=== PATIENT | male | born 1995 ===

== ENCOUNTER 2017-12-12 12:49 | Emergency (ER) | payer OTHER ==
[2017-12-12] MEDS ORDERED: Lidocaine 2% PF * 5 ML VIAL INJ ONE (13:20)
--- NOTE | 2017-12-12 14:06 | RAD ---
INDICATION: Right great toe laceration after traumatic injury TECHNIQUE: 3 views of the right great toe were obtained. FINDINGS: At the medial proximal corner of the right great toe distal phalanx there is a well-circumscribed bony focus that either represents a nondisplaced fracture or a bony ossicle. The remaining visualized bones are intact and appropriately aligned. IMPRESSION: Bony focus at the medial proximal corner of the right great toe distal phalanx more likely represents a benign bony ossicle but could represent a nondisplaced fracture in the correct clinical setting.
[2017-12-12] MEDS ORDERED: Cephalexin CAP* 500 MG PO ONE (14:34)
--- NOTE | 2017-12-12 14:49 | UC ---
Laceration HPI - HPI Summary HPI Summary: Patient states he was standing next to a skid steer bucket when his friend jumped down from the cabin and landed on the bucket, which smashed his right big foot. States he had tetanus vaccine a few years ago and he is not in need of one. NKDA, no PMH - History Of Current Complaint Chief Complaint: UCLaceration Stated Complaint: TOE LACERATION Time Seen by Provider: 12/12/17 12:59 Hx Obtained From: Patient Laceration Location: Toe Mechanism Of Injury: Blunt Trauma Onset/Duration: Sudden Onset, Lasting Hours Severity: Moderate Pain Intensity: 5 Aggravating Factors: Movement - Allergies/Home Medications Allergies/Adverse Reactions: Allergies Allergy/AdvReac Type Severity Reaction Status Date / Time No Known Allergies Allergy Verified 12/12/17 13:10 PMH/Surg Hx/FS Hx/Imm Hx Previously Healthy: Yes - Surgical History Surgical History: None - Social History Alcohol Use: Occasionally Substance Use Type: None Smoking Status (MU): Never Smoked Tobacco Type: Smokeless Tobacco Review of Systems Musculoskeletal: Arthralgia, Myalgia All Other Systems Reviewed And Are Negative: Yes Physical Exam Triage Information Reviewed: Yes Appearance: Well-Appearing, No Pain Distress, Well-Nourished Vital Signs: Initial Vital Signs Temp 99.0 F 12/12/17 13:05 Pulse 84 12/12/17 13:05 Resp 18 12/12/17 13:05 BP 138/93 12/12/17 13:05 Pulse Ox 100 12/12/17 13:05 Vital Signs Reviewed: Yes Eyes: Positive: Conjunctiva Clear Neck: Positive: Supple Respiratory: Positive: Chest non-tender, Lungs clear Cardiovascular: Positive: Pulses Normal, Brisk Capillary Refill Musculoskeletal: Positive: ROM Intact - can wiggle and flex toes, No Edema Neurological: Positive: Alert Laceration Repair - Laceration Repair 1 Description: Stellate Laceration Size After Repair: Length (cm) - 3.5, Depth (mm) - 3 Modified For Repair: No Type Injection: Digital Anesthesia Used: 2.0% Lido Cleansing Completed Via Routine Prep: Yes Closure Material: Sutures Closure Method: Single Layer Suture Of: Skin, SQ Suture Type: Prolene Laceration Course/Dx - Course/Dx Course Of Treatment: laceration repair done, hemostasis achieved via compressive dressing, wound care discussed with patient, return in 7 days for wound check and suture removal, start keflex 500mg po tid for 5 days. F/u with PCP and orthopedics. Use surgical shoe for ambulation - Differential Dx - Laceration/Wound Provider Diagnoses: Laceration of right big toe. Trauma Big toe non displaced fracture vs [place] Discharge - Sign-Out/Discharge Documenting (check all that apply): Discharge - Discharge Plan Condition: Stable Disposition: HOME Prescriptions: Cephalexin CAP* [Keflex CAP*] 500 mg PO TID 5 Days #15 cap Patient Education Materials: Cephalexin (By mouth), Care For Your Stitches (ED) , Laceration (ED), Toe Fracture (ED) Forms: *Work Release Referrals: [facility] [place] [facility] REFERRAL [Outside] No Primary Care Phys,NOPCP [Primary Care Provider] - - Billing Disposition and Condition Condition: STABLE Disposition: HOME
== END 2017-12-12 15:00 | disposition home or self-care (01) ==
LOC: UCEAST 12:49
DX: S91.111A Laceration without foreign body of right great toe without damage to nail, initial encounter (principal); W23.0XXA Caught, crushed, jammed, or pinched between moving objects, initial encounter; Y93.9 Activity, unspecified; Y92.9 Unspecified place or not applicable
CPT/HCPCS: 12002; 99212; A9270-GY; G0463